=== PATIENT | male | born 1995 | race Caucasian/White ===

== ENCOUNTER 2019-01-24 20:09 | Emergency (ER) | payer BC ==
[2019-01-24] MEDS ORDERED: Ibuprofen 200 MG TAB ONE (20:21)
--- NOTE | 2019-01-24 20:38 | RAD ---
Radiograph left ankle 3 views: DATE: 01/24/2019 HISTORY: 23-year-old male status post acute traumatic injury FINDINGS: Ankle mortise congruent. Soft tissue swelling circumferentially. No fracture or any other osseous abn ormality. IMPRESSION: 1. No fracture. 2. Soft tissue edema
== END 2019-01-24 20:50 | disposition home or self-care (01) ==
LOC: ERS 20:09
DX: S93.402A Sprain of unspecified ligament of left ankle, initial encounter (principal); X50.1XXA Overexertion from prolonged static or awkward postures, initial encounter; Y93.64 Activity, baseball